=== PATIENT | female | born 1995 ===

== ENCOUNTER 2017-02-14 09:33 | Emergency (ER) | payer MEDICAID ==
[2017-02-14 09:42] VITALS: BP 102/67; PULSE 97; TEMP 97; O2SAT 100
--- NOTE | 2017-02-14 09:44 | ED PDOC ---
HPI: Psych/Substance Abuse Time Seen by Provider: 02/14/17 09:37 History Per: Patient Onset/Duration Of Symptoms: Hrs (1) Current Symptoms Are (Timing): Still Present Suicide/Self Injury Attempted (Context): None Modifying Factor(s): None Severity: Moderate Associated Symptoms: Anxiety Additional Complaint(s): Sudden onset anxiety with numbness and spasm both hands this AM while at work. Denies chest pain. No SI/HI Past Medical History Vital Signs: Last Vital Signs Temp 97 F L 02/14/17 09:40 Pulse 97 H 02/14/17 09:40 Resp BP 102/67 02/14/17 09:40 Pulse Ox 100 02/14/17 09:40 - Medical History PMH: Anxiety - Family History Family History: States: Unknown Family Hx - Immunization History Hx Tetanus Toxoid Vaccination: No Hx Influenza Vaccination: No Hx Pneumococcal Vaccination: No - Home Medications Home Medications: Ambulatory Orders Medication Instructions Recorded Doxylamine Succinate [Unisom] 25 mg PO BID PRN #30 tablet 07/30/16 Pyridoxine [Vitamin B6] 25 mg PO BID #30 tab 07/30/16 Ondansetron [Zofran Odt] 4 mg PO TID PRN #9 odt 08/17/16 Docusate Sodium [Dulcolax Stool 100 mg PO DAILY #15 capsule 08/23/16 Softener] Sod Phos,M-B/Na Phos,Di-Ba [Enema] 133 ml RC DAILY #2 enema 08/23/16 traMADol [Ultram] 50 mg PO Q6 #12 tab 08/23/16 - Allergies Allergies/Adverse Reactions: Allergies Allergy/AdvReac Type Severity Reaction Status Date / Time No Known Allergies Allergy Verified 02/14/17 09:44 Review of Systems ROS Statement: Except As Marked, All Systems Reviewed And Found Negative Psych: Positive for: Anxiety Physical Exam - Reviewed Nursing Documentation Reviewed: Yes Vital Signs Reviewed: Yes - Physical Exam Appears: Positive for: Non-toxic, No Acute Distress Head Exam: Positive for: ATRAUMATIC, NORMAL INSPECTION, NORMOCEPHALIC Skin: Positive for: Normal Color, Warm, DRY Eye Exam: Positive for: EOMI, Normal appearance, PERRL ENT: Positive for: Normal ENT Inspection Neck: Positive for: Normal, Painless ROM Cardiovascular/Chest: Positive for: Regular Rate, Rhythm Respiratory: Positive for: CNT, Normal Breath Sounds Gastrointestinal/Abdominal: Positive for: Normal Exam, Bowel Sounds, Soft Back: Positive for: Normal Inspection Extremity: Positive for: Normal ROM Neurologic/Psych: Positive for: Alert, Oriented - ECG O2 Sat by Pulse Oximetry: 100 Disposition - Clinical Impression Clinical Impression: Anxiety - Patient ED Disposition Is Patient to be Admitted: Transfer of Care - Disposition Disposition: Transfer of Care Disposition Time: 10:51 Condition: FAIR Patient Signed Over To: Ramone Villagomez
--- NOTE | 2017-02-14 10:59 | ED PDOC ---
- ECG O2 Sat by Pulse Oximetry: 100 - Progress ED Course And Treament: 1058: Took over care from Dr. Ramírez. Pending pt. to wake up from ativan. 1358: Stable. AAOX3. Crisis saw pt. Does not meet criteria for admit. Fu pcp. Disposition - Clinical Impression Clinical Impression: Anxiety - POA Present On Arrival: None - Disposition Referrals: [facility] [Outside] - 02/15/17 Disposition: Routine/Home Disposition Time: 10:58 Condition: STABLE Additional Instructions: Return if not better in 3 days. FOLLOW UP WITH [facility] LOCATED AT [address] [place] [id number] Instructions: Anxiety (ED)
== END 2017-02-14 14:10 | disposition home or self-care (01) ==
LOC: H.ER 09:33
DX: F41.9 Anxiety disorder, unspecified (principal)

== ENCOUNTER 2017-03-23 15:50 | Emergency (ER) | payer MEDICAID ==
[2017-03-23 15:58] VITALS: BP 111/52; PULSE 95; RESP 20; TEMP 98.3; O2SAT 100
[2017-03-23 16:57] LABS: BASO % 0.5 % (0.0-2.0); EOS % 0.6 % (0.0-4.0); HEMOGLOBIN 11.9 g/dL (12.0-16.0); LYMPH # 1.6 K/uL (1.0-4.3); LYMPH % 22.2 % (20.0-40.0); MEAN CELL VOLUME 93.2 fl (81.0-99.0); MEAN CORPUSCULAR HEMOGLOBIN 31.7 pg (27.0-31.0); MONO # 0.5 K/uL (0.0-0.8); MONO % 6.7 % (0.0-10.0); NEUT # 5.1 K/uL (1.8-7.0); RBC 3.74 Mil/uL (3.80-5.20); RED CELL DISTRIBUTION WIDTH 12.2 % (11.5-14.5); WHITE BLOOD COUNT 7.3 K/uL (4.8-10.8)
[2017-03-23] MEDS ORDERED: Sodium Chloride 0.9% 1,000 ML IV STA ×2 (17:00→17:30)
[2017-03-23 17:28] LABS: BLOOD UREA NITROGEN 7 mg/dl (7-17); CALCIUM 9.8 mg/dL (8.4-10.2); GFR AFRICAN-AMERICAN > 60; GFR NON-AFRICAN AMERICAN > 60
[2017-03-23] MEDS ORDERED: Lactated Ringer's 1,000 ML IV SCH (17:45)
--- NOTE | 2017-03-23 17:48 | ED PDOC ---
HPI: Abdomen Time Seen by Provider: 03/23/17 16:15 Chief Complaint (Nursing): Abdominal Pain Chief Complaint (Provider): abdominal pain, nausea/vomiting History Per: Patient History/Exam Limitations: no limitations Onset/Duration Of Symptoms: Days (6), Intermittent Episodes Current Symptoms Are (Timing): Intermittent Episodes Severity: Moderate Location Of Pain/Discomfort: Suprapubic Quality Of Discomfort: Sharp, Cramping Associated Symptoms: Nausea, Vomiting, Loss Of Appetite, Urinary Symptoms. denies: Diarrhea, Back Pain Exacerbating Factors: None Alleviating Factors: None Last Bowel Movement: Today Additional Complaint(s): 22yo F now approx 6 weeks presents c/o lower abd pain associated with nausea and multiple episodes of vomiting. Denies fever, diarrhea , vaginal bleeding or hematemesis. Seen at [facility] over last week for similar issues, taking Abx for UTI. Has not yet seen OB. Abnormal Vaginal Bleeding: No Against Medical Advice - AMA Patient Left Against Medical Advice: The patient declines admission to the hospital and wishes to leave the Emergency Department. This action is against my medical advice. This decision was made with informed refusal. The patient was told that admission to the hospital is necessary. Explanation of the reasons why were discussed. The risks of leaving were explained to the patient and include, but are not limited to, worsening of known or currently unknown conditions, permanent disability and from undiagnosed or untreated conditions. The patient has the capacity to make this informed decision and understands my explanation of the current medical problem and risks of leaving. The patient voluntarily accepts these risks and signed an AMA form documenting our conversation. The patient was given the opportunity to ask questions and reconsider. The patient was encouraged to return to the Emergency Department at any time for further care. Past Medical History Reviewed: Historical Data, Nursing Documentation, Vital Signs Vital Signs: Last Vital Signs Temp 98.3 F 03/23/17 15:54 Pulse 95 H 03/23/17 15:54 Resp 20 03/23/17 15:54 BP 111/52 L 03/23/17 15:54 Pulse Ox 100 03/23/17 18:04 - Medical History PMH: Anxiety Denies: Diabetes, Hepatitis, HIV, HTN, Seizures, Sexually Transmitted Disease - Family History Family History: States: Unknown Family Hx - Social History Current smoker - smoking cessation education provided: No Alcohol: None - Immunization History Hx Tetanus Toxoid Vaccination: No Hx Influenza Vaccination: No Hx Pneumococcal Vaccination: No - Home Medications Home Medications: Ambulatory Orders Medication Instructions Recorded 21/Iron Fu/Folic Acid 1 each PO DAILY #30 tablet 03/16/17 [ Complete Caplet] Acetaminophen [Tylenol 325mg tab] 650 mg PO PRN PRN 03/22/17 Metoclopramide [Reglan] 1 tab PO TID PRN #25 tab 03/22/17 Nitrofurantoin Macrocrystals 1 cap PO BID #14 cap 03/22/17 [Macrobid] Ondansetron ODT [Zofran ODT] 4 mg PO Q4 PRN #12 odt 03/23/17 - Allergies Allergies/Adverse Reactions: Allergies Allergy/AdvReac Type Severity Reaction Status Date / Time No Known Allergies Allergy Verified 03/22/17 18:06 Review of Systems ROS Statement: Except As Marked, All Systems Reviewed And Found Negative Constitutional: Negative for: Fever, Chills Cardiovascular: Negative for: Chest Pain, Palpitations Respiratory: Negative for: Cough, Shortness of Breath Gastrointestinal: Positive for: Nausea, Vomiting Genitourinary Female: Positive for: Frequency, Pelvic Pain. Negative for: Dysuria, Vaginal Discharge, Vaginal Bleeding Musculoskeletal: Negative for: Neck Pain, Shoulder Pain Skin: Negative for: Rash, Lesions, Jaundice Neurological: Negative for: Weakness, Numbness Psych: Negative for: Anxiety Physical Exam - Reviewed Nursing Documentation Reviewed: Yes Vital Signs Reviewed: Yes - Physical Exam Appears: Positive for: Non-toxic (anxious), No Acute Distress Head Exam: Positive for: ATRAUMATIC, NORMAL INSPECTION, NORMOCEPHALIC Skin: Positive for: Normal Color, Warm, DRY Eye Exam: Positive for: EOMI, Normal appearance, PERRL ENT: Positive for: Normal ENT Inspection Neck: Positive for: Normal, Painless ROM Cardiovascular/Chest: Positive for: Regular Rate, Rhythm Respiratory: Positive for: CNT, Normal Breath Sounds Gastrointestinal/Abdominal: Positive for: Bowel Sounds, Soft, Tenderness (lower abd) Back: Positive for: Normal Inspection Extremity: Positive for: Normal ROM Neurologic/Psych: Positive for: Alert, Oriented - Laboratory Results Result Diagrams: 03/23/17 16:40 03/23/17 16:40 - ECG O2 Sat by Pulse Oximetry: 100 Medical Decision Making Medical Decision Making: workup initiated for hyperemesis and lower abd pain. Taking Abx for UTI from [facility] [place] per chart.. OB TV ultrasound ordered, bloodwork, IVF and tylenol. Pt anxious, offered emotional support and explained need for testing. labs reviewed chem c/w dehydration US prelim report reviewed +IUP w FHR, did not tolerate TVUS Prior US report reviewed- no torsion. 6pm- explained pt needs further treatment in ED, but wants to leave. Explained risks incld loss of , kidney/liver/organ damage, maternal and other unforeseen complications exist. Pt signed AMA. Vitals stable, AAOx3 with ability to make decisions. Disposition - Clinical Impression Clinical Impression: Threatened , Hyperemesis gravidarum, at early stage - Patient ED Disposition Is Patient to be Admitted: No Counseled Patient/Family Regarding: Studies Performed, Diagnosis, Need For Followup, Rx Given - Disposition [facility] Disposition: Routine/Home Disposition Time: 18:00 Condition: STABLE Additional Instructions: You left ER against medical advice. You required further testing and treatment to assure safety of your health and . You can return at any time for completion of treatment. Take medications as prescribed. Followup with OB doctor within 1-2 days. Instructions: Against Medical Advice (ED), Hyperemesis Gravidarum (ED), Abdominal Pain in (ED) Forms: [employer] (Swedish)
--- NOTE | 2017-03-23 17:48 | US ---
Indication: pelvic pain 6 wks preg Comparison: Ob transvaginal ultrasound performed 08/12/15 Technique: Transabdominal pelvic ultrasound. The patient declined transvaginal imaging. Findings: The uterus measures approximately 8.8 x 4.5 x 5.8 cm. Anteverted. Cervix length measures approximately 3.1 cm. There is a single intrauterine fetus present. 3 mm yolk sac. The gestational sac measures 2.6 cm and is compatible with a gestational age of 7 weeks 2 days. The crown-rump length measures 1.0 cm and is compatible with a gestational age of 7 weeks 1 day. There is heart motion which measured 141.6 BPM. The right ovary measures 3.3 x 2.1 x 1.5 cm. The left ovary is not visualized. Blood flow is demonstrated to the right ovary. Trace pelvic free fluid. Impression: Limited transabdominal pelvic ultrasound. The patient declined transvaginal imaging. Live single intrauterine with estimated gestational age 7 weeks 2 days. heart rate 141.6 bpm. Trace pelvic free fluid. Advise an anomaly screen at 16-18 weeks gestational age.
== END 2017-03-23 18:38 | disposition left against medical advice (07) ==
LOC: H.ER 15:50
DX: O21.0 Mild hyperemesis gravidarum (principal); O26.891 Other specified pregnancy related conditions, first trimester; F41.9 Anxiety disorder, unspecified; Z3A.18 18 weeks gestation of pregnancy

== ENCOUNTER 2017-03-25 04:06 | Observation (INO) | payer MEDICAID ==
[2017-03-25] MEDS ORDERED: Sodium Chloride 0.9% 1,000 ML IV STA ×2 (04:26→05:44)
--- NOTE | 2017-03-25 04:37 | ED PDOC ---
HPI:Nausea, Vomiting, Diarrhea Time Seen by Provider: 03/25/17 04:10 Chief Complaint (Nursing): Abdominal Pain Chief Complaint (Provider): Nausea and Vomiting History Per: Patient History/Exam Limitations: no limitations Onset/Duration Of Symptoms: Other (x1 week) Current Symptoms Are (Timing): Still Present Have you had recent travel within the past 21 days to any of the following countries: [place], [place], [place] or [place]?: No Context: Other () Quality Of Discomfort: Burning (burning epigastric pain), "Pain" (bilateral lower abdominal pain) Associated Symptoms: Nausea, Vomiting. denies: Fever, Chills Additional Complaint(s): 22 year old female presents to ED with complaints of nausea and vomiting x1 week , has a past history of anxiety, and is currently 7 weeks . Patient notes persistence of symptoms as well as burning epigastric pain and bilateral lower abdominal pain. Patient has had multiple ED visits for the sample complaints. Patient states that she is unable to tolerate PO or anti-nausea medication. (-) fever or chills, (+) anxiety. PCP: [facility] Abnormal Vaginal Bleeding: No : 4 Para: 1 Past Medical History Reviewed: Historical Data, Nursing Documentation, Vital Signs Vital Signs: Last Vital Signs Temp 98.2 F 03/25/17 04:13 Pulse 80 03/25/17 04:13 Resp 16 03/25/17 04:13 BP 125/67 03/25/17 04:13 Pulse Ox 100 03/25/17 04:13 - Medical History PMH: Anxiety Denies: Diabetes, Hepatitis, HIV, HTN, Seizures, Sexually Transmitted Disease - Family History Family History: States: No Known Family Hx - Living Arrangements Living Arrangements: With Family - Social History Alcohol: Occasional Drugs: Denies - Immunization History Hx Tetanus Toxoid Vaccination: No Hx Influenza Vaccination: No Hx Pneumococcal Vaccination: No - Home Medications Home Medications: Ambulatory Orders Medication Instructions Recorded 21/Iron Fu/Folic Acid 1 each PO DAILY #30 tablet 03/16/17 [ Complete Caplet] Acetaminophen [Tylenol 325mg tab] 650 mg PO PRN PRN 03/22/17 Metoclopramide [Reglan] 1 tab PO TID PRN #25 tab 03/22/17 Nitrofurantoin Macrocrystals 1 cap PO BID #14 cap 08/07/17 [Macrobid] Ondansetron ODT [Zofran ODT] 4 mg PO Q4 PRN #12 odt 03/23/17 Doxylamine/Pyridoxine HCl (B6) 1 each PO HS #10 tablet. 03/25/17 [Marcos Castro 10-10 mg Tablet] - Allergies Allergies/Adverse Reactions: Allergies Allergy/AdvReac Type Severity Reaction Status Date / Time No Known Allergies Allergy Verified 03/22/17 18:06 Review of Systems ROS Statement: Except As Marked, All Systems Reviewed And Found Negative Constitutional: Negative for: Fever, Chills Gastrointestinal: Positive for: Nausea, Vomiting, Abdominal Pain Psych: Positive for: Anxiety Physical Exam - Reviewed Nursing Documentation Reviewed: Yes Vital Signs Reviewed: Yes - Physical Exam Appears: Positive for: Non-toxic, Uncomfortable (Hyperventilating) Head Exam: Positive for: ATRAUMATIC, NORMOCEPHALIC Skin: Positive for: Normal Color, Warm, Dry Eye Exam: Positive for: Normal appearance, EOMI, PERRL ENT: Positive for: Normal ENT Inspection Neck: Positive for: Normal, Painless ROM, Supple Cardiovascular/Chest: Positive for: Regular Rate, Rhythm. Negative for: Murmur Respiratory: Positive for: Normal Breath Sounds. Negative for: Respiratory Distress Gastrointestinal/Abdominal: Positive for: Normal Exam, Soft. Negative for: Tenderness Extremity: Positive for: Normal ROM. Negative for: Deformity Neurologic/Psych: Positive for: Alert, Oriented, Mood/Affect (anxious appearing) . Negative for: Motor/Sensory Deficits - Laboratory Results Result Diagrams: 03/25/17 04:41 03/25/17 04:41 - ECG O2 Sat by Pulse Oximetry: 100 (RA) Medical Decision Making Medical Decision Makin Initial impression: abdominal pain in , anxiety Initial plan: * Labs * BETA HCG QUANT * UPReg * UDip * NS IV * Pepcid 20mg IVP * Zofran Inj 4mg IVP * ED OBS * UA * US OB TRANSVAG All further documentation will take place in ED OBS note. Scribe Attestation: Documented by Venice Winters acting as a scribe for Alex Matson MD. Scribe Attestation: All medical record entries made by the Scribe were at my direction and personally dictated by me. I have reviewed the chart and agree that the record accurately reflects my personal performance of the history, physical exam, medical decision making, and the department course for this patient. I have also personally directed, reviewed, and agree with the discharge instructions and disposition. ED OBSERVATION Date of observation admission: 03/25/17 Time of observation admission: 04:27 - Observation admission statement Patient is being placed in observation because:: Pending US - Goals of Observation Goals of observation are:: US results - Progress Note Progress Note: 03/25/17 06:00 Patient is resting comfortably. Vitals stable. 03/25/17 07:00 Patient will be signed out to Dr. Benavides pending US and reassessment. Disposition - Clinical Impression Clinical Impression: Hyperemesis gravidarum, Abdominal pain during , Threatened , Dehydration - Disposition Disposition: Transfer of Care Disposition Time: 04:27 Condition: FAIR Patient Signed Over To: Felix Benavides III (at 0700) Handoff Comments: Pending US and reassessment - Pt Status Changed To: Hospital Disposition Of: Observation
[2017-03-25 04:55] LABS: BASO % 0.4 % (0.0-2.0); EOS % 0.2 % (0.0-4.0); HEMOGLOBIN 11.2 g/dL (12.0-16.0); LYMPH # 1.7 K/uL (1.0-4.3); LYMPH % 18.2 % (20.0-40.0); MEAN CELL VOLUME 92.8 fl (81.0-99.0); MEAN CORPUSCULAR HEMOGLOBIN 31.4 pg (27.0-31.0); MEAN CORPUSCULAR HGB CONC 33.8 g/dL (33.0-37.0); MEAN PLATELET VOLUME 9.4 fl (7.2-11.7); MONO # 0.7 K/uL (0.0-0.8); MONO % 7.3 % (0.0-10.0); NEUT % 73.9 % (50.0-75.0); RBC 3.56 Mil/uL (3.80-5.20); RED CELL DISTRIBUTION WIDTH 12.5 % (11.5-14.5); WHITE BLOOD COUNT 9.4 K/uL (4.8-10.8)
[2017-03-25 05:01] LABS: BLOOD UREA NITROGEN 6 mg/dl (7-17); CALCIUM 9.3 mg/dL (8.4-10.2); GFR AFRICAN-AMERICAN > 60; GFR NON-AFRICAN AMERICAN > 60; LIPASE 35 U/L (23-300)
[2017-03-25 06:15] LABS: SQUAMOUS EPITHIAL 1 /hpf (0-5); URINE BACTERIA RARE (<OCC); URINE BILIRUBIN NEGATIVE (NEGATIVE); URINE CLARITY SLIGHTY-CLOUDY (Clear); URINE COLOR YELLOW (YELLOW); URINE GLUCOSE (UA) NEG (Normal); URINE LEUKOCYTE ESTERASE NEG Leu/uL (Negative); URINE NITRATE NEGATIVE (NEGATIVE); URINE PROTEIN 30 mg/dL (NEGATIVE); URINE UROBILINOGEN 0.2-1.0 mg/dL (0.2-1.0)
[2017-03-25 06:17] LABS: URINE BLOOD SMALL (NEGATIVE)
--- NOTE | 2017-03-25 07:11 | ED PDOC ---
- Laboratory Results Result Diagrams: 03/25/17 04:41 03/25/17 04:41 - ECG O2 Sat by Pulse Oximetry: 100 (RA) Pulse Ox Interpretation: Normal Medical Decision Making Medical Decision Making: Time: 7:00 Patient signed over pending US and re-evaluation. Re-eval 9am pt improved, tolerated PO crackers and juice, US report reviewed w patient, discussed need for followup, offered OB eval in hospital but prefers to go home and followup. Trial Diclegis- unclear if insurance will cover- followup OB 2-3 days. Rec small frequent meals. On vits. Has antiemetics at home. Scribe Attestation: Documented by Ashleigh Bonilla, acting as a scribe for Felix Benavides DO. Provider Scribe Attestation: All medical record entries made by the Scribe were at my direction and personally dictated by me. I have reviewed the chart and agree that the record accurately reflects my personal performance of the history, physical exam, medical decision making, and the department course for this patient. I have also personally directed, reviewed, and agree with the discharge instructions and disposition. Disposition - Clinical Impression Clinical Impression: Hyperemesis gravidarum, Abdominal pain during , Threatened , Dehydration - POA Present On Arrival: None - Disposition Disposition: Routine/Home Disposition Time: 08:00 Condition: FAIR ED OBSERVATION Date of observation admission: 03/25/17 Time of observation admission: 04:27 - Observation admission statement Patient is being placed in observation because:: Time extensive ED evaluation - Goals of Observation Goals of observation are:: Evaluation of nausea and vomiting and to obtain obstetric diagnostics. - Progress Note Progress Note: 03/25/17 08:53 pt is starting to feel a little better, nausea improving. US Results: FINDINGS: UTERUS: Measures 8.6 x 7.5 x 6.3 cm. Mildly are enlarged due to intrauterine gestation. No fibroid or other parenchymal mass lesion seen. ENDOMETRIUM: An intrauterine gestation is identified within the endometrial cavity with a mean sac diameter of 2.7 cm and yolk sac and pole well identified swells cardiac activity up to 144 beats per minute. Mean crown rump length its size is 1.18 cm corresponding to an average ultrasonic age of 7 weeks 3 days. Patient's last menstrual period is unknown. The decidual reaction appears within normal limits throughout. No significant bleed is identified. Limited fluid seen the cul-de-sac which may be physiologic. CERVIX: A smaller low thin cyst seen the anterior cervix which is otherwise unremarkable. RIGHT OVARY: Measures 2.9 x 2.7 x 2.1 cm. No solid mass. Normal flow. LEFT OVARY: Measures 3.9 x 3.2 x 2.4 cm. No solid mass. Normal flow. FREE FLUID: As above. OTHER FINDINGS: None. IMPRESSION: A single viable intrauterine gestation identified with average of age of 7 weeks 3 days and cardiac activity of 144 beats per minute, as discussed above. No suspicious decidual findings with the cervix remarkable only for a small nabothian cyst in the uterus are unremarkable otherwise. Clinical follow- up is advised. Ultrasound may be performed for follow-up as clinically required. 03/25/17 09:30 pt is feeling better. Tolerated fluids and crackers. Pt is ambulating and wants to go home. She was offered re-eval given recurring ED visits. Advised to f/u in clinic. Will offer rx for Diclegis. Unclear if insurance will accept.
--- NOTE | 2017-03-25 08:27 | US ---
HISTORY: 1st TM, abd pain COMPARISON: None available. TECHNIQUE: Transvaginal ultrasound was performed in longitudinal and transverse planes to evaluate intrauterine gestation. FINDINGS: UTERUS: Measures 8.6 x 7.5 x 6.3 cm. Mildly are enlarged due to intrauterine gestation. No fibroid or other parenchymal mass lesion seen. ENDOMETRIUM: An intrauterine gestation is identified within the endometrial cavity with a mean sac diameter of 2.7 cm and yolk sac and pole well identified swells cardiac activity up to 144 beats per minute. Mean crown rump length its size is 1.18 cm corresponding to an average ultrasonic age of 7 weeks 3 days. Patient's last menstrual period is unknown. The decidual reaction appears within normal limits throughout. No significant bleed is identified. Limited fluid seen the cul-de-sac which may be physiologic. CERVIX: A smaller low thin cyst seen the anterior cervix which is otherwise unremarkable. RIGHT OVARY: Measures 2.9 x 2.7 x 2.1 cm. No solid mass. Normal flow. LEFT OVARY: Measures 3.9 x 3.2 x 2.4 cm. No solid mass. Normal flow. FREE FLUID: As above. OTHER FINDINGS: None. IMPRESSION: A single viable intrauterine gestation identified with average of age of 7 weeks 3 days and cardiac activity of 144 beats per minute, as discussed above. No suspicious decidual findings with the cervix remarkable only for a small nabothian cyst in the uterus are unremarkable otherwise. Clinical follow-up is advised. Ultrasound may be performed for follow-up as clinically required.
[2017-03-25 09:31] VITALS: BP 136/91; PULSE 65; RESP 18; TEMP 98.1
[2017-03-25 09:32] VITALS: O2SAT 100
== END 2017-03-25 09:45 | disposition home or self-care (01) ==
LOC: H.ER 04:06 → H.EROBSV 04:27
PROVIDERS: ADMIT Emergency Medicine; ATTEND Emergency Medicine
DX: O20.0 Threatened abortion (principal); O21.0 Mild hyperemesis gravidarum; O99.281 Endocrine, nutritional and metabolic diseases complicating pregnancy, first trimester; E86.0 Dehydration; Z3A.01 Less than 8 weeks gestation of pregnancy

== ENCOUNTER 2017-05-03 21:29 | Emergency (ER) | payer MEDICAID ==
[2017-05-03 21:37] VITALS: BP 108/79; PULSE 103; RESP 16; TEMP 98.6; O2SAT 98
--- NOTE | 2017-05-03 22:42 | ED PDOC ---
HPI: Female Pain Time Seen by Provider: 05/03/17 22:02 Chief Complaint (Nursing): Female Genitourinary Chief Complaint (Provider): vaginal spotting History Per: Patient History/Exam Limitations: no limitations Onset/Duration Of Symptoms: Hrs Current Symptoms Are (Timing): Still Present Additional History Per: Patient Additional Complaint(s): 22 y/o female, approx 13 weeks gestation, presents with vaginal spotting x 1 day. Denies fever, nausea/vomiting, chest pain, shortness of breath, changes in bowel movements, dysuria, hematuria. LMP unknown, patient states periods irregular. No care, states first visit next week at [facility]. Abnormal Vaginal Bleeding: Yes : 4 Para: 1 Miscarriage: 2 Past Medical History Reviewed: Historical Data, Nursing Documentation, Vital Signs Vital Signs: Last Vital Signs Temp 98.6 F 05/03/17 21:33 Pulse 103 H 05/03/17 21:33 Resp 16 05/03/17 21:33 BP 108/79 05/03/17 21:33 Pulse Ox 98 05/03/17 21:33 - Medical History PMH: Anxiety Denies: HIV, HTN, Seizures, Sexually Transmitted Disease - Family History Family History: States: Unknown Family Hx - Immunization History Hx Tetanus Toxoid Vaccination: No Hx Influenza Vaccination: No Hx Pneumococcal Vaccination: No - Home Medications Home Medications: Ambulatory Orders Medication Instructions Recorded 21/Iron Fu/Folic Acid 1 each PO DAILY #30 tablet 03/16/17 [ Complete Caplet] - Allergies Allergies/Adverse Reactions: Allergies Allergy/AdvReac Type Severity Reaction Status Date / Time No Known Allergies Allergy Verified 05/03/17 21:32 Review of Systems ROS Statement: Except As Marked, All Systems Reviewed And Found Negative Genitourinary Female: Positive for: Vaginal Bleeding Physical Exam - Reviewed Nursing Documentation Reviewed: Yes Vital Signs Reviewed: Yes - Physical Exam Appears: Positive for: Well, Non-toxic, Uncomfortable (crying) Head Exam: Positive for: ATRAUMATIC, NORMAL INSPECTION, NORMOCEPHALIC Skin: Positive for: Normal Color Eye Exam: Positive for: Normal appearance ENT: Positive for: Normal ENT Inspection Cardiovascular/Chest: Positive for: Regular Rate, Rhythm Respiratory: Positive for: Normal Breath Sounds Gastrointestinal/Abdominal: Positive for: Normal Exam Pelvic Exam: Positive for: External Exam Normal, Speculum Exam Normal, No Cerv. Motion Tender, Other (os closed. exam chaperoned by Ayaz ZAPATA). Negative for: Active Bleeding, Blood, Cervicitis Back: Positive for: Normal Inspection Extremity: Positive for: Normal ROM Neurologic/Psych: Positive for: Alert, Oriented - Laboratory Results Result Diagrams: 05/03/17 23:42 05/03/17 23:42 - ECG O2 Sat by Pulse Oximetry: 98 - Progress ED Course And Treament: labs, urine, u/s EXAM: US Uterus, Limited CLINICAL HISTORY: 22 years old, female; Signs and symptoms; Lmp or gestational age (in weeks): Not sure; Antepartum complications; Hemorrhage; ; Additional info: Approx 13 wks, vaginal spotting TECHNIQUE: Real-time ultrasound of the maternal uterus (limited) with image documentation. COMPARISON: US - OB TRANSVAGINAL 08/12/2015 4:53:45 PM FINDINGS: A single intrauterine gestation is identified in variable position with placenta posterior. The cervix measures 4.7 cm, and is closed. BPD: 2.6 cm, corresponding to an approximate gestational age of 14 weeks 3 days. HC: 8.8 cm, corresponding to an approximate gestational age of 13 weeks 6 days. AC: 6.4 cm, corresponding to an approximate gestational age of 13 weeks 1 day. FL.: 1.2 cm, corresponding to an approximate gestational age of 13 weeks 3 days. cardiac activity is identified. 168 beats per minute. The right ovary is unremarkable in echogenicity and size measuring 3.0 x 1.1 x 2.6 cm. The left ovary is unremarkable in echogenicity and size measuring 2.7 x 1.2 x 3.9 cm. IMPRESSION: Single intrauterine gestation with an approximate gestational age of 13 weeks and 5 days. cardiac activity is identified. The cervix is closed. Patient educated on findings, discharged with instructions to follow up Cardiac Technician ( appt next week) Return to ED for worsening/concerning symptoms. Disposition - Clinical Impression Clinical Impression: Vaginal bleeding in Counseled Patient/Family Regarding: Studies Performed, Diagnosis, Need For Followup - Disposition Disposition: Routine/Home Disposition Time: 00:37 Condition: STABLE Additional Instructions: Follow up with Cardiac Technician at scheduled appointment. Return to ED for worsening/concerning symptoms. Instructions: Threatened Miscarriage (ED) Forms: [employer] (Citizen Of [place])
--- NOTE | 2017-05-03 23:42 | US ---
EXAM: US Uterus, Limited CLINICAL HISTORY: 22 years old, female; Signs and symptoms; Lmp or gestational age (in weeks): Not sure; Antepartum complications; Hemorrhage; ; Additional info: Approx 13 wks, vaginal spotting TECHNIQUE: Real-time ultrasound of the maternal uterus (limited) with image documentation. COMPARISON: US - OB TRANSVAGINAL 08/12/2015 4:53:45 PM FINDINGS: A single intrauterine gestation is identified in variable position with placenta posterior. The cervix measures 4.7 cm, and is closed. BPD: 2.6 cm, corresponding to an approximate gestational age of 14 weeks 3 days. HC: 8.8 cm, corresponding to an approximate gestational age of 13 weeks 6 days. AC: 6.4 cm, corresponding to an approximate gestational age of 13 weeks 1 day. FL.: 1.2 cm, corresponding to an approximate gestational age of 13 weeks 3 days. cardiac activity is identified. 168 beats per minute. The right ovary is unremarkable in echogenicity and size measuring 3.0 x 1.1 x 2.6 cm. The left ovary is unremarkable in echogenicity and size measuring 2.7 x 1.2 x 3.9 cm. IMPRESSION: Single intrauterine gestation with an approximate gestational age of 13 weeks and 5 days. cardiac activity is identified. The cervix is closed.
[2017-05-03 23:47] LABS: BASO % 0.4 % (0.0-2.0); EOS # 0.1 K/uL (0.0-0.7); EOS % 0.7 % (0.0-4.0); HEMATOCRIT 31.4 % (34.0-47.0); LYMPH # 2.4 K/uL (1.0-4.3); LYMPH % 22.4 % (20.0-40.0); MEAN CELL VOLUME 93.4 fl (81.0-99.0); MEAN CORPUSCULAR HEMOGLOBIN 31.7 pg (27.0-31.0); MEAN CORPUSCULAR HGB CONC 33.9 g/dL (33.0-37.0); MEAN PLATELET VOLUME 9.2 fl (7.2-11.7); MONO # 0.8 K/uL (0.0-0.8); MONO % 7.3 % (0.0-10.0); NEUT # 7.3 K/uL (1.8-7.0); NEUT % 69.2 % (50.0-75.0); NRBC % 0.1 % (0.0-0.0); WHITE BLOOD COUNT 10.5 K/uL (4.8-10.8)
[2017-05-03 23:55] LABS: ALB/GLOB RATIO 1.5 (1.0-2.1); ALKALINE PHOSPHATASE 47 U/L (38-126); ALT/SGPT 25 U/L (9-52); AST/SGOT 26 U/L (14-36); BILIRUBIN,TOTAL 0.4 mg/dl (0.2-1.3); BLOOD UREA NITROGEN 6 mg/dl (7-17); CALCIUM 9.6 mg/dL (8.4-10.2); CARBON DIOXIDE 21 mmol/L (22-30); CHLORIDE 102 mmol/L (98-107); GFR AFRICAN-AMERICAN > 60; GLUCOSE,RANDOM 70 mg/dL (65-105); POTASSIUM 4.1 MMOL/L (3.6-5.0); SODIUM 134 mmol/l (132-148); TOTAL PROTEIN 7.2 G/DL (6.3-8.2)
== END 2017-05-04 01:15 | disposition home or self-care (01) ==
LOC: H.ER 21:29
DX: O20.9 Hemorrhage in early pregnancy, unspecified (principal); Z3A.13 13 weeks gestation of pregnancy; O99.341 Other mental disorders complicating pregnancy, first trimester; F41.9 Anxiety disorder, unspecified

== ENCOUNTER 2017-10-08 10:48 | Inpatient (IN) | payer MEDICAID ==
[2017-10-08] MEDS ORDERED: Lactated Ringer's 1,000 ML IV ONE (11:00)
[2017-10-08 11:29] VITALS: BMI 28.3
[2017-10-08] MEDS ORDERED: Labetalol 5mg/ml (4ml) IVP STA ×2 (11:45→12:39)
[2017-10-08] MEDS ORDERED: Labetalol 5mg/ml (4ml) ONE ×2 (11:47→12:45)
[2017-10-08 11:56] LABS: BASO % 0.5 % (0.0-2.0); EOS # 0.1 K/uL (0.0-0.7); EOS % 0.8 % (0.0-4.0); HEMOGLOBIN 13.1 g/dL (12.0-16.0); LYMPH # 3.1 K/uL (1.0-4.3); LYMPH % 29.7 % (20.0-40.0); MEAN CELL VOLUME 92.1 fl (81.0-99.0); MEAN CORPUSCULAR HGB CONC 33.6 g/dL (33.0-37.0); MEAN PLATELET VOLUME 11.9 fl (7.2-11.7); MONO # 0.9 K/uL (0.0-0.8); MONO % 8.4 % (0.0-10.0); NEUT # 6.3 K/uL (1.8-7.0); NEUT % 60.6 % (50.0-75.0); NRBC % 0.2 % (0.0-0.0); RBC 4.22 Mil/uL (3.80-5.20); RED CELL DISTRIBUTION WIDTH 13.3 % (11.5-14.5); WHITE BLOOD COUNT 10.4 K/uL (4.8-10.8)
[2017-10-08] MEDS ORDERED: Nalbuphine 20 mg/ml Inj (1 ml) IVP PRN (11:56)
[2017-10-08] MEDS ORDERED: Nalbuphine 20 mg/ml Inj (1 ml) ONE (11:57)
[2017-10-08] MEDS: Lactated Ringer's 1,000 ML IV SCH ×2 (12:00→16:03)
[2017-10-08 12:11] LABS: ALBUMIN 3.9 g/dL (3.5-5.0); ALT/SGPT 20 U/L (9-52); AST/SGOT 28 U/L (14-36); BLOOD UREA NITROGEN 9 mg/dl (7-17); CALCIUM 9.4 mg/dL (8.4-10.2); GFR AFRICAN-AMERICAN > 60; GFR NON-AFRICAN AMERICAN > 60
[2017-10-08] MEDS ORDERED: Penicillin G 5 Million Unit Vial IVPB ONE (12:11)
[2017-10-08] MEDS ORDERED: Magnesium Sulfate 4 gm/100 ml 4 GM/100 ML BAG IV ONE (13:05)
[2017-10-08] MEDS ORDERED: Magnesium Sul 40GM/1L SW 40 GM/1,000 ML ML IV ONE (13:09)
--- NOTE | 2017-10-08 14:26 | OBADHP ---
Datetime: 10/08/2017 11:42 IP Chief Complaint Other: elevated BP Admit Comment, IP Provider: Patient is a @ 35.5 wks presents with abdominal pain and leaking . Patient also reported having spots in vision, no ALFARO, no vaginal bleeding. No issues, no m edical/surgical problems. Presenting BPs on admission were 188/122, pt was 5cm dilated, FHR = 140 mod sandy, +accels, no decels. TOCO = ctxning q 2 mins A/P 1. Patient admitted for labor and possible severe labor and r/o severe pre-eclamps ia vs uncontrolled gestational HTN 2. PCN for GBS prophylaxis 3. Type and screen, CBC/CMP drawn STAT 4. Labetalol to be pushed for HTN urgency 5. CEFM and TOCO 6. Patient wants Nubain for pain Pelvic Type - PN: Adequate Extremities - PN: Normal Abdomen - PN: Normal Back - PN: Normal Breast - PN: Normal Lungs - PN: Normal Heart - PN: Normal Thyroid - PN: Normal Neurologic - PN: Normal HEENT - PN: Normal General - PN: Normal FHR - Baseline A Provider: 130 Contraction Comments Provider: q 5 mins Vital Signs Provider: Reviewed; Within Normal Limits IP Chief Complaint: Uterine contractions NICHD Variability Prov Fetus A: Moderate 6-25bpm Dilatation, Provider: 5-6 Effacement, Provider: 50 Station, Provider: -1 Genitourinary Exam: Normal DTRs - PN: Normal IP Adm Impression: , intrauterine IP Admit Plan: Admit to unit
[2017-10-08] MEDS ORDERED: Oxytocin 30 UNITS in Sodium Chloride 0.9% 500 ML IV ONE (14:39)
[2017-10-08] MEDS ORDERED: Oxycodone/Acetaminophen 5/325 mg Tab PO PRN ×2 (14:51)
[2017-10-08] MEDS ORDERED: Benzocaine/Menthol SPRAY TOP PRN (14:51)
--- NOTE | 2017-10-08 15:06 | OBDS ---
MATERNAL INFORMATION Provider Comments: of live female over intact perineum 1900gm 9/9 followed by shoulders and rest of infant atraumatically, mouth and nose suctioned, cord clamped and cut, cord blood obtaine d, placenta delivered spontaneously, fundus firm, no lacerations noted LABOR SUMMARY No. Babies in Womb: 1 Attempted: No Labor Anesthesia: None LABOR INFORMATION Reason for Induction: Premature Rupture of Membranes Onset of Labor: 10/08/2017 08:00 Oxytocin: N/A Group B Beta Strep: N/A (Annotations: PT given Pe G 5 million units at 1210) Antibiotics # of Doses: Kervin G 5 million units Antibiotics Time of Last Dose: 1210 Steroids Given: None Reason Steroids Not Administered: Not Applicable MEMBRANES Membranes Rupture Method: Spontaneous Rupture of Membranes: 10/08/2017 08:00 Amniotic Fluid Color: Clear Amniotic Fluid Amount: Moderate Amniotic Fluid Odor: Normal IDENTIFICATION/MEDS BABY A ID Band Number: [id number]
[2017-10-08 20:27] LABS: BASO # 0.1 K/uL (0.0-0.2); BASO % 0.4 % (0.0-2.0); EOS % 0.1 % (0.0-4.0); HEMOGLOBIN 10.9 g/dL (12.0-16.0); LYMPH # 1.6 K/uL (1.0-4.3); LYMPH % 10.1 % (20.0-40.0); MEAN CELL VOLUME 91.7 fl (81.0-99.0); MEAN CORPUSCULAR HEMOGLOBIN 30.4 pg (27.0-31.0); MEAN CORPUSCULAR HGB CONC 33.1 g/dL (33.0-37.0); MEAN PLATELET VOLUME 12.3 fl (7.2-11.7); MONO # 0.8 K/uL (0.0-0.8); NEUT # 13.7 K/uL (1.8-7.0); NEUT % 84.4 % (50.0-75.0); RBC 3.59 Mil/uL (3.80-5.20); RED CELL DISTRIBUTION WIDTH 13.3 % (11.5-14.5); WHITE BLOOD COUNT 16.3 K/uL (4.8-10.8)
[2017-10-08 20:45] LABS: ALBUMIN 3.3 g/dL (3.5-5.0); ALT/SGPT 18 U/L (9-52); AST/SGOT 27 U/L (14-36); BLOOD UREA NITROGEN 6 mg/dl (7-17); CALCIUM 8.1 mg/dL (8.4-10.2); GFR AFRICAN-AMERICAN > 60; GFR NON-AFRICAN AMERICAN > 60
[2017-10-09] MEDS: Lactated Ringer's 1,000 ML IV SCH ×2 (06:00→11:32)
[2017-10-09] MEDS ORDERED: Multivitamin With Minerals Tab PO SCH (09:00)
[2017-10-09] MEDS ORDERED: Magnesium Sul 40GM/1L SW 40 GM/1,000 ML ML IV ONE ×3 (10:15→11:22)
[2017-10-09 10:54] LABS: HEMOGLOBIN 10.2 g/dL (12.0-16.0); MEAN CELL VOLUME 92.1 fl (81.0-99.0); MEAN CORPUSCULAR HEMOGLOBIN 31.1 pg (27.0-31.0); MEAN CORPUSCULAR HGB CONC 33.7 g/dL (33.0-37.0); RBC 3.29 Mil/uL (3.80-5.20); RED CELL DISTRIBUTION WIDTH 13.1 % (11.5-14.5); WHITE BLOOD COUNT 9.5 K/uL (4.8-10.8)
[2017-10-09] MEDS ORDERED: Lactated Ringer's 1,000 ML IV SCH (11:30)
[2017-10-09] MEDS ORDERED: Oxycodone/Acetaminophen 5/325 mg Tab PO PRN ×2 (16:13)
[2017-10-09] MEDS ORDERED: Benzocaine/Menthol SPRAY TOP PRN (16:13)
[2017-10-10] MEDS ORDERED: Multivitamin With Minerals Tab PO SCH (09:00)
[2017-10-10 21:51] VITALS: BP 115/68; PULSE 76; RESP 20; TEMP 98.6; O2SAT 100
== END 2017-10-10 15:00 | disposition home or self-care (01) | DRG 372 ==
LOC: H.EROB2 10:48 → H.L&D 11:29 → H.OB/GYN 10-09 16:13
PROVIDERS: ADMIT Obstetrics & Gynecology; ATTEND Obstetrics & Gynecology
PROC: 10E0XZZ Delivery of Products of Conception, External Approach (ICD-10-PCS; principal; 2017-10-08)
PROC: 4A1HXCZ Monitoring of Products of Conception, Cardiac Rate, External Approach (ICD-10-PCS; 2017-10-08)
DX: O42.013 Preterm premature rupture of membranes, onset of labor within 24 hours of rupture, third trimester (principal); I16.0 Hypertensive urgency; Z37.0 Single live birth; Z3A.35 35 weeks gestation of pregnancy